=== PATIENT | female | born 1965 | race African-American/Black ===

== ENCOUNTER 2024-08-21 13:37 | Emergency (ER) | payer MEDICAID ==
[~2024-08-21] VITALS: Ht 180.3 cm; Wt 125.5 kg
[2024-08-21] VITALS (7 sets, daily range): BP systolic 73; BP diastolic 54; PULSE 79–140; RESP 20–27; TEMP 36.72516; O2SAT 96–100
[2024-08-21] MEDS: VANCOMYCIN 1G PREMIX 200 ML IV ONE (14:00)
[2024-08-21] MEDS: PIPERACILLIN/TAZO 3.375G/50ML 50 ML IV ONE ×2 (14:00→18:13)
[2024-08-21 14:05] LABS: HEMATOCRIT. 25.7 % (36.0-48.0); HEMOGLOBIN. 7.7 g/dL (12.0-16.0); MEAN CORPUSCULAR HEMOGLOBIN 28.1 pg (28.0-32.0); MEAN CORPUSCULAR HGB CONC 30.1 g/dL (31.0-37.0); MEAN CORPUSCULAR VOLUME 93.4 fL (81.0-99.0); MEAN PLATELET VOLUME 9.5 fl (7.4-10.4); PLATELET 57 x1000/uL (130-400); RED BLOOD CELL COUNT 2.75 mill/uL (4.2-5.4); RED CELL DISTRIBUTION WIDTH 18.6 % (11.6-14.6); WHITE BLOOD COUNT 5.1 x1000/uL (4.5-11.0)
[2024-08-21 14:06] LABS: DIFFERENTIAL COMMENT 1
[2024-08-21 14:13] LABS: CHLORIDE 107 mEq/L (98-107); POTASSIUM 3.3 mEq/L (3.5-5.1); SODIUM 144 mEq/L (136-145)
[2024-08-21 14:14] LABS: CARBON DIOXIDE 13 mEq/L (21-32)
[2024-08-21 14:15] LABS: CALCIUM 7.1 mg/dL (8.7-10.4)
[2024-08-21 14:19] LABS: CREATININE 2.6 mg/dL (0.6-1.0); INR 1.9; PROTHROMBIN TIME 20.3 sec (9.6-11.0); UREA NITROGEN BLOOD 55 mg/dL (9-23)
[2024-08-21 14:26] LABS: GLUCOSE 23 mg/dL (70-105); TROPONIN I HIGH SENSITIVITY 359 ng/L (3.0-34)
[2024-08-21 14:35] LABS: NUCLEATED RED BLOOD CELLS 6 /100 WBC
[2024-08-21] MEDS: SODIUM CHLORIDE 0.9% (SEPSIS BOLUS) IV ONE (14:35)
[2024-08-21] MEDS: DEXTROSE 50% WATER 50ML SYRINGE IV ONE ×3 (14:35)
[2024-08-21] MEDS: NOREPINEPHRINE 8MG/250ML PMX 250 ML IV ONE ×3 (14:35→17:30)
[2024-08-21] MEDS: PROPOFOL 10MG/ML 100ML 100 ML IV SCH (14:35)
[2024-08-21 14:36] LABS: ANISOCYTOSIS 2+; PLATELET ESTIMATE DECREASED
[2024-08-21 14:37] LABS: BG BASE EXCESS -15.4 mmol/L (-2.0-3.0); BG CARBOXYHEMOGLOBIN 0.2 % (0.5-1.5); BG DEOXYHEMOGLOBIN 0.4 % (0.0-5.0); BG FRACTION INSPIRED OXYGEN 100; BG HCO3 ACT 11.5 mmol/L (21.0-28.0); BG METHEMOGLOBIN 0.1 % (0.5-1.5); BG OXYGEN SATURATION 99.6 % (94.0-98.0); BG OXYHEMOGLOBIN 99.3 % (94.0-98.0); BG PCO2 30.5 mmHg (32.0-45.0); BG PH 7.193 (7.350-7.450); BG PO2 484.9 mmHg (83.0-108.0); BG SAMPLE SITE LEFT RADIAL; BG TOTAL HEMOGLOBIN 9.3 g/dL (12.0-16.0); BG VENT MODE VENT - AC
[2024-08-21] MEDS ORDERED: ACETAMINOPHEN 650MG/20.3ML UDC NG PRN ×2 (15:45→16:30)
[2024-08-21] MEDS ORDERED: ACETAMINOPHEN 650MG SUPP PR PRN ×2 (15:45→16:30)
[2024-08-21] MEDS: SODIUM BICARBONATE 8.4% 50MEQ/50ML SYR IV ONE (15:47)
[2024-08-21] MEDS: IOHEXOL-350 100 ML BOTTLE ONE (15:54)
[2024-08-21] MEDS: DILTIAZEM HCL 5MG/ML 5ML VIAL IV ONE (15:54)
[2024-08-21] MEDS ORDERED: CLONIDINE 0.1MG TABLET PO PRN (16:30)
[2024-08-21] MEDS ORDERED: DOCUSATE SODIUM 100MG CAPSULE PO PRN (16:30)
[2024-08-21] MEDS ORDERED: MAGNESIUM/ALUMINUM HYDROXIDE/SIMETHICONE 30ML UDC PO PRN (16:30)
[2024-08-21] MEDS ORDERED: CLINDAMYCIN 300 MG in DEXTROSE 5% WATER 50 ML IV SCH (16:30)
[2024-08-21] MEDS ORDERED: ONDANSETRON HCL 4MG/2ML INJ IV PRN (16:30)
[2024-08-21] MEDS ORDERED: PROPOFOL 10MG/ML 100ML 100 ML IV PRN (16:30)
[2024-08-21] MEDS ORDERED: VANCOMYCIN 1GM PMX (XELLIA) 200 ML IV ONE (16:30)
[2024-08-21] MEDS ORDERED: PHENYLEPHRINE 50MG/250ML PMX 250 ML IV PRN (17:00)
[2024-08-21] MEDS ORDERED: DEXTROSE 50% WATER 50ML SYRINGE IV PRN (17:00)
[2024-08-21 17:22] LABS: IRON 120 ug/dL (50-170)
[2024-08-21 17:23] LABS: TRIGLYCERIDE 177 mg/dL (0-150)
[2024-08-21 17:24] LABS: LDL CHOLESTEROL 56 mg/dL (5-100)
[2024-08-21 17:25] LABS: CHOLESTEROL 88 mg/dL (<200); HDL CHOLESTEROL < 20 mg/dL (>65); TOTAL IRON BINDING CAPACITY 152 ug/dl (250-425)
[2024-08-21 17:29] LABS: FOLIC ACID (FOLATE) SERUM 6.36 ng/mL (>5.38); VITAMIN B12 SERUM 647 pg/mL (211-911)
[2024-08-21] MEDS: BLOOD SUGAR DIAGNOSTIC STRIP TEST SCH (17:29)
[2024-08-21] MEDS: SODIUM CHLORIDE 0.9% 1,000 ML IV SCH (17:29)
[2024-08-21] MEDS ORDERED: VANCOMYCIN 1GM PMX (XELLIA) 200 ML IV NR ×2 (17:30→18:00)
[2024-08-21] MEDS: PANTOPRAZOLE SODIUM 40 MG/VIAL IV SCH (17:39)
[2024-08-21] MEDS: CLINDAMYCIN 600MG PREMIX 50 ML IV SCH (18:19)
[2024-08-21] MEDS: INSULIN LISPRO 100 UNITS/ML SUBCUT SCH (18:20)
[2024-08-21] MEDS: ENOXAPARIN 120MG/0.8ML SYR SUBCUT SCH (18:27)
[2024-08-21 18:35] LABS: CLARITY URINE TURBID (CLEAR); COLOR URINE ORANGE (YELLOW); GLUCOSE URINE NEGATIVE (NEGATIVE); KETONES URINE NEGATIVE (NEGATIVE); LEUKOCYTE ESTERASE URINE 3+ (NEGATIVE); NITRITE URINE POSITIVE (NEGATIVE); OCCULT BLOOD URINE 2+ (NEGATIVE); PROTEIN URINE 2+ (NEGATIVE); SPECIFIC GRAVITY URINE 1.025 (1.005-1.030)
[2024-08-21 19:00] LABS: BG BASE EXCESS -19.8 mmol/L (-2.0-3.0); BG CARBOXYHEMOGLOBIN 0.2 % (0.5-1.5); BG DEOXYHEMOGLOBIN 2.4 % (0.0-5.0); BG FRACTION INSPIRED OXYGEN 50; BG HCO3 ACT 9.2 mmol/L (21.0-28.0); BG METHEMOGLOBIN 0.3 % (0.5-1.5); BG OXYGEN SATURATION 97.6 % (94.0-98.0); BG OXYHEMOGLOBIN 97.1 % (94.0-98.0); BG PCO2 33.5 mmHg (32.0-45.0); BG PH 7.056 (7.350-7.450); BG PO2 144.3 mmHg (83.0-108.0); BG SAMPLE SITE LEFT RADIAL; BG TOTAL HEMOGLOBIN 8.9 g/dL (12.0-16.0); BG TOTAL RESPIRATORY RATE 24 b/min; BG VENT MODE VENT - AC
[2024-08-21 19:08] LABS: BACTERIA URINE 3+; RBC URINE 25-50 /hpf (0-2); SQUAMOUS EPITHELIAL CELL URINE 1+ /lpf (RARE/1+); WBC URINE TNTC /hpf (0-2); YEAST URINE 3+
[2024-08-21] MEDS: VANCOMYCIN 1GM PMX (XELLIA) 200 ML IV SCH (19:24)
[2024-08-21 19:31] LABS: TROPONIN I HIGH SENSITIVITY 1259 ng/L (3.0-34)
[2024-08-21] MEDS: DEXT 5%/0.45% NACL 1000ML 1,000 ML IV SCH (20:05)
[2024-08-21] MEDS: PHENYLEPHRINE 50MG/250ML PMX 250 ML IV PRN (20:06)
[2024-08-21] MEDS ORDERED: MEROPENEM 1G/100ML 100 ML IV SCH (22:00)
[2024-08-21] MEDS ORDERED: IOHEXOL-350 100 ML BOTTLE ONE (23:33)
== END 2024-08-21 20:49 ==
LOC: ER 13:37 → EDBEDREQ 14:08 → ER 20:49 → CANBEDREQ 21:49
DX: A41.9 Sepsis, unspecified organism (principal); R65.20 Severe sepsis without septic shock; I48.91 Unspecified atrial fibrillation; E11.649 Type 2 diabetes mellitus with hypoglycemia without coma; I10 Essential (primary) hypertension; Z88.5 Allergy status to narcotic agent; Z98.890 Other specified postprocedural states
CPT/HCPCS: 80061; 80048; 81003; 82607; 82746; 82962; 83036; 87106; 83880; 83540; 83550; 83605; 85025; 85610; 86850; 86900; 86901; 87040; 87086; 84484; 87804 ×2; 36415; 84145; 71045; 71275; 74177; 82805; 82375; 93005; 94003; 96367; 96368; 96365; 96375; 99291; 36600; Q9967; J3370; J1650; J3490 ×3; J2470; J2543; J2704; J7030; Z7610 ×3; J2185